=== PATIENT | female | born 1985 | race Caucasian/White ===

== ENCOUNTER 2022-10-28 07:45 | Inpatient (IN) ==
[~2022-10-28 07:45] MED LIST: Buffered Lidocaine 1% SYRIN 1 ml INTRADERM ONE; Lactated Ringers 1000 ml BAG 1,000 ML IV ONE; Lactated Ringers 1000 ml BAG 1,000 ML IV SCH; Sodium Citrate/Citric Acid LIQ 15 ML UDC PO ONE; ceFOXitin 2 GM IVPREMIX 2 GM/50 ML BAG IVPB ONE
[2022-10-28 10:17] LABS: ABS Eosinophils 0.1 10^3/uL (0.0-0.5); ABS Lymphocytes 1.8 10^3/uL (1.0-4.8); ABS Monocytes 0.7 10^3/uL (0.0-0.9); ABS Neutrophils 5.4 10^3/uL (1.5-7.6); ABS Nucleated RBC 0.01 10^3/ul; Eosinophil % 0.8 %; Hemoglobin 13.2 g/dL (11.5-14.3); Lymphocyte % 22.4 %; Mean Corpuscular Hemoglobin 32.3 pg (27-33); Mean Corpuscular Hgb Conc 34.7 g/dL (31-36); Mean Corpuscular Volume 93.1 fL (80-97); Mean Platelet Volume 9.7 fL (7.5-11.2); Nucleated Red Blood Cells % 0.1 /100 WBC (0.0-0.4); Platelet Count 208 10^3/uL (150-450); Red Blood Count 4.08 10^6/uL (3.63-4.92)
[2022-10-28] MEDS ORDERED: fentaNYL 100 mcg/2 ml 50 MCG/ML VIAL ONE (10:41)
[2022-10-28] MEDS ORDERED: Morphine PF AMP (0.5MG/ML) 5 MG/10 ML AMP ONE (10:41)
[2022-10-28] MEDS ORDERED: ceFOXitin 2 GM IVPREMIX 2 GM/50 ML BAG IVPB ONE (11:00)
[2022-10-28] MEDS ORDERED: Dexamethasone IV 4 MG/ML VIAL 1 ml VIAL ONE (11:22)
[2022-10-28] MEDS ORDERED: Phenylephrine 40 mcg/mL 10mL (400mcg) SYRINGE ONE (11:22)
[2022-10-28] MEDS ORDERED: Ondansetron 4 mg VIAL 2 MG/ML 2 ml VIAL ONE (11:22)
[2022-10-28] MEDS ORDERED: Oxytocin 10 UNITS/ML 1 ML VIAL ONE ×2 (11:37→12:25)
[2022-10-28] MEDS ORDERED: Acetaminophen IV 1 GM/100ML 1,000 MG/100 ML BAG IV ONE (11:38)
[2022-10-28] MEDS ORDERED: Ondansetron 4 mg VIAL 2 MG/ML 2 ml VIAL IV PRN (12:07)
[2022-10-28] MEDS ORDERED: Naloxone 0.4 mg VIAL 0.4 mg/ml 1 ml VIAL IV PUSH PRN (12:07)
[2022-10-28] MEDS ORDERED: Acetaminophen IV 1 GM/100ML 1,000 MG/100 ML BAG IV PRN (12:07)
[2022-10-28] MEDS ORDERED: Metoclopramide 5 MG/ML VIAL (10 mg) IV PRN (12:07)
[2022-10-28 12:32] LABS: Urine Appearance Clear; Urine Bilirubin Negative (Negative); Urine Blood Negative (Negative); Urine Color Colorless; Urine Glucose Negative (Negative); Urine Ketones Negative (Negative); Urine Nitrite Negative (Negative); Urine Protein Negative (Negative); Urine Specific Gravity 1.002 (1.002-1.030); Urine Urobilinogen Negative (Negative)
[2022-10-28 12:51] LABS: Urine Benzodiazepine Screen None Detected (None Detect); Urine Cannabinoids Screen None Detected (None Detect); Urine Opiates Screen None Detected (None Detect)
[2022-10-28] MEDS ORDERED: Glycerin ADULT 2.4 gm SUPP PR PRN (12:56)
[2022-10-28] MEDS ORDERED: Witch Hazel PAD JAR TOPICAL PRN (12:56)
[2022-10-28] MEDS ORDERED: Lactated Ringers 1000 ml BAG 1,000 ML IV SCH (13:00)
[2022-10-29 06:41] LABS: ABS Eosinophils 0.1 10^3/uL (0.0-0.5); ABS Lymphocytes 1.9 10^3/uL (1.0-4.8); ABS Neutrophils 8.2 10^3/uL (1.5-7.6); Eosinophil % 1.1 %; Hematocrit 31.3 % (35-45); Hemoglobin 11.1 g/dL (11.5-14.3); Mean Corpuscular Hemoglobin 32.9 pg (27-33); Mean Corpuscular Hgb Conc 35.6 g/dL (31-36); Mean Corpuscular Volume 92.5 fL (80-97); Mean Platelet Volume 9.2 fL (7.5-11.2); Platelet Count 202 10^3/uL (150-450); Red Blood Count 3.38 10^6/uL (3.63-4.92); Red Cell Distribution Width 12.7 % (12-17); White Blood Count 11.3 10^3/uL (3.8-11.8)
[2022-10-31 15:57] VITALS: BP 122/67
== END 2022-10-31 13:11 | disposition home or self-care (01) | DRG 540 ==
LOC: MCHOB 09:00
PROVIDERS: ADMIT Obstetrics & Gynecology; ATTEND Obstetrics & Gynecology